=== PATIENT | female | born 1975 | race Caucasian/White ===

== ENCOUNTER → 2016-10-10 | Outpatient (CLI) | payer MEDICAID ==
[~2016-10-10] MED LIST: AMITRIPTYLINE H25 M1 PO; BRINTELLIX10 PO; BUSPAR5 MG PO; CELEBREX 200MG200 MG PO; FETZIMA80 PO; LORTAB PO; MULTIPLE VITAMI1 CAP PO; MYBETRIC; NUCYNTA50 MG PO; PREDNISONE20 MG PO; TOPROL XL 25MG25 MG PO; TRAMADOL; ULTRAM 50MG TAB50 MG PO; ZYRTEC5 MG PO
== END ==
LOC: BHSO 09:18
DX: F06.32 Mood disorder due to known physiological condition with major depressive-like episode (principal)